=== PATIENT | male | born 1950 | race Caucasian/White ===

== ENCOUNTER 2023-11-17 09:03 | Inpatient (IN) | payer OTHER, MEDICAID ==
[~2023-11-17] VITALS: Ht 167.6 cm; Wt 53.5 kg
[2023-11-17 09:16] VITALS: BP 113/80; PULSE 98; RESP 16; TEMP 98.1; O2SAT 93
[2023-11-17 10:03] LABS: BASOPHILS % (AUTO) 0.2 % (0.0-2.0); EOSINOPHILS # (AUTO) 0.4 K/uL (0-0.4); EOSINOPHILS % (AUTO) 2.6 % (0.0-4.0); HEMATOCRIT 40.3 % (36-52); HEMOGLOBIN 13.7 g/dL (12.0-18.0); LYMPHOCYTES # (AUTO) 1.3 K/uL (2.0-11.5); LYMPHOCYTES % (AUTO) 9.4 % (20.5-51.1); MEAN CORPUSCULAR HEMOGLOBIN 30 pg (27-31); MEAN CORPUSCULAR HGB CONC 34 g/dL (33-37); MEAN CORPUSCULAR VOLUME 87.4 fL (80-94); MONOCYTES # (AUTO) 1.2 K/uL (0.8-1.0); MONOCYTES % (AUTO) 8.7 % (1.7-9.3); NEUTROPHILS # (AUTO) 10.8 K/uL (1.8-7.7); NEUTROPHILS % (AUTO) 79.1 % (42.2-75.2); PLATELET COUNT (AUTO) 363 K/uL (140-450); RED BLOOD CELL COUNT(AUTO) 4.61 MIL/uL (4.20-6.10); RED CELL DISTRIBUTION WIDTH 15.7 % (11.6-13.7); WHITE BLOOD COUNT (AUTO) 13.7 K/uL (4.8-10.8)
[2023-11-17 10:15] LABS: ANION GAP 15.5 (8-16); CARBON DIOXIDE 25.8 mmol/L (21-32); CHLORIDE 98 mmol/L (98-107); CREATININE 0.8 mg/dL (0.6-1.3); GLUCOSE 87 mg/dL (74-106); POTASSIUM 4.3 mmol/L (3.5-5.1); SODIUM SERUM 135 mmol/L (136-145); UREA NITROGEN, BLOOD 22 mg/dL (7-18)
[2023-11-17] MEDS ORDERED: ACETAMINOPHEN 325 MG TAB PO PRN (10:25)
[2023-11-17] MEDS ORDERED: ONDANSETRON 4 MG/2 ML VIAL IVP PRN ×2 (10:25→15:15)
[2023-11-17] MEDS ORDERED: MELA5SGL GT (10:47)
[2023-11-17] MEDS ORDERED: LEVO25CA2 GT (10:47)
[2023-11-17] MEDS ORDERED: VALP-22 GT (10:47)
[2023-11-17] MEDS ORDERED: OLAN2.5T1 GT (10:47)
[2023-11-17] MEDS ORDERED: BREX2TAB GT (10:47)
[2023-11-17] MEDS: DEXT 5% /NACL 0.9% 1,000 ML IV SCH (11:26)
[2023-11-17] MEDS ORDERED: MAG SULF 2000 MG/WATER PREMIX 50 ML IV PRN (15:15)
[2023-11-17] MEDS ORDERED: HYDROcodone/APAP 7.5/325 MG 1 TAB PO PRN (15:15)
[2023-11-17] MEDS ORDERED: POTASSIUM CHLORIDE 10 MEQ TABER PO PRN (15:15)
[2023-11-17] MEDS ORDERED: ACETAMINOPHEN 650 MG/20.3 ML UDC GT PRN (15:20)
[2023-11-17 15:39] LABS: INR 0.99 (0.8-1.2); PARTIAL THROMBOPLASTIN TIME 36.4 secs (22-35.6); PROTHROMBIN TIME 10.4 secs (10.8-13.4)
[2023-11-17 15:44] LABS: LACTIC ACID 1.2 mmol/L (0.4-2.0)
[2023-11-17 15:50] LABS: AMYLASE 48 U/L (25-115); CHOL/HDL RATIO 4.6 (1-4.5); CHOLESTEROL 166 mg/dL (<200); HDL CHOLESTEROL 36 mg/dL (40-60); LDL (CALC) 111 mg/dL (60-100); LIPASE 37 U/L (16-77); MAGNESIUM 2.1 mg/dL (1.8-2.4); PHOSPHORUS 3.7 mg/dL (2.5-4.9); THYROID STIMULATING HORMONE 3.34 uIU/mL (0.34-3.74); TRIGLYCERIDES 98 mg/dL (30-150)
[2023-11-17] MEDS: NACL 0.9% 1,000 ML IV SCH (15:51)
[2023-11-17 20:30] VITALS: BP 118/62; PULSE 81; PULSE 87; RESP 18; TEMP 98.1; O2SAT 98
[2023-11-17 20:53] VITALS: PULSE 84
[2023-11-17] MEDS ORDERED: BREXPIPRAZOLE 2 MG GT SCH (21:00)
[2023-11-17] MEDS: MELATONIN 3 MG TAB PO SCH (21:00)
[2023-11-17] MEDS: DOCUSATE 100 MG/10 ML UDC GT SCH (21:00)
[2023-11-17] MEDS: VALPROIC ACID 250 MG/5 ML UDC GT SCH (21:00)
[2023-11-17] MEDS ORDERED: MELATONIN 5 MG GT SCH (21:00)
[2023-11-17] MEDS: OLANZapine 2.5 MG TAB GT SCH (21:00)
[2023-11-18] VITALS (7 sets, daily range): BP systolic 108–138; BP diastolic 65–85; PULSE 64–85; RESP 18; TEMP 97.6–99; O2SAT 77–99
[2023-11-18] MEDS: DEXT 5% /NACL 0.9% 1,000 ML IV SCH (03:50)
[2023-11-18] MEDS: LEVOTHYROXINE 0.025 MG TAB PO SCH (06:30)
[2023-11-18 07:03] LABS: BASOPHILS % (AUTO) 0.3 % (0.0-2.0); CALCIUM 8.8 mg/dL (8.5-10.1); CARBON DIOXIDE 23.3 mmol/L (21-32); CHLORIDE 102 mmol/L (98-107); CREATININE 0.7 mg/dL (0.6-1.3); EOSINOPHILS # (AUTO) 0.3 K/uL (0-0.4); EOSINOPHILS % (AUTO) 2.9 % (0.0-4.0); GLUCOSE 84 mg/dL (74-106); HEMATOCRIT 38.5 % (36-52); HEMOGLOBIN 13.3 g/dL (12.0-18.0); LYMPHOCYTES # (AUTO) 1.4 K/uL (2.0-11.5); MEAN CORPUSCULAR HEMOGLOBIN 30 pg (27-31); MEAN CORPUSCULAR HGB CONC 35 g/dL (33-37); MEAN CORPUSCULAR VOLUME 87.7 fL (80-94); MONOCYTES % (AUTO) 9.7 % (1.7-9.3); NEUTROPHILS # (AUTO) 7.4 K/uL (1.8-7.7); NEUTROPHILS % (AUTO) 73.1 % (42.2-75.2); PLATELET COUNT (AUTO) 351 K/uL (140-450); POTASSIUM 4.3 mmol/L (3.5-5.1); RED BLOOD CELL COUNT(AUTO) 4.39 MIL/uL (4.20-6.10); RED CELL DISTRIBUTION WIDTH 15.8 % (11.6-13.7); SODIUM SERUM 136 mmol/L (136-145); UREA NITROGEN, BLOOD 18 mg/dL (7-18); WHITE BLOOD COUNT (AUTO) 10.1 K/uL (4.8-10.8)
[2023-11-18 07:21] LABS: MAGNESIUM 1.9 mg/dL (1.8-2.4); PHOSPHORUS 2.9 mg/dL (2.5-4.9)
[2023-11-18] MEDS: PANTOPRAZOLE 40 MG INJ VIAL IVP SCH (09:00)
[2023-11-18] MEDS ORDERED: LEVOTHYROXINE SODIUM 25 MCG GT SCH (09:00)
[2023-11-19] VITALS (7 sets, daily range): BP systolic 105–137; BP diastolic 59–100; PULSE 47–90; RESP 18; TEMP 97.3–98.1; O2SAT 92–98
[2023-11-19 06:32] LABS: APPEARANCE,URINE CLEAR (CLEAR); BILIRUBIN,URINE NEGATIVE (NEGATIVE); BLOOD, URINE NEGATIVE (NEGATIVE); COLOR,URINE YELLOW (YELLOW); LEUKOCYTE ESTERASE ,URINE NEGATIVE (NEGATIVE); NITRITE, URINE NEGATIVE (NEGATIVE); PH,URINE 6.5 (5.0-9.0); PROTEIN,URINE NEGATIVE (NEGATIVE); UGLUCOSE NEGATIVE (NEGATIVE); UROBILINOGEN,URINE 0.2 EU/dL (0.2 - 1)
[2023-11-19 06:33] LABS: BASOPHILS # (AUTO) 0.1 K/uL (0.00-0.22); BASOPHILS % (AUTO) 0.5 % (0.0-2.0); EOSINOPHILS # (AUTO) 0.3 K/uL (0-0.4); EOSINOPHILS % (AUTO) 3.5 % (0.0-4.0); HEMATOCRIT 36.1 % (36-52); HEMOGLOBIN 12.4 g/dL (12.0-18.0); LYMPHOCYTES # (AUTO) 1.6 K/uL (2.0-11.5); LYMPHOCYTES % (AUTO) 16.4 % (20.5-51.1); MEAN CORPUSCULAR HEMOGLOBIN 30 pg (27-31); MEAN CORPUSCULAR HGB CONC 34 g/dL (33-37); MEAN CORPUSCULAR VOLUME 87.8 fL (80-94); MONOCYTES % (AUTO) 10.7 % (1.7-9.3); NEUTROPHILS # (AUTO) 6.5 K/uL (1.8-7.7); NEUTROPHILS % (AUTO) 68.9 % (42.2-75.2); PLATELET COUNT (AUTO) 315 K/uL (140-450); RED BLOOD CELL COUNT(AUTO) 4.11 MIL/uL (4.20-6.10); RED CELL DISTRIBUTION WIDTH 15.8 % (11.6-13.7); WHITE BLOOD COUNT (AUTO) 9.4 K/uL (4.8-10.8)
[2023-11-19 06:44] LABS: AMPHETAMINE, URINE NEGATIVE ng/ml (NEG <=1000); BARBITURATE, URINE NEGATIVE ng/ml (NEG <=200); BENZODIAZEPINE, URINE NEGATIVE ng/mL (NEG <=200); CANNABINOID, URINE NEGATIVE ng/mL (NEG <=50); COCAINE, URINE NEGATIVE ng/mL (NEG <=300); OPIATE, URINE NEGATIVE ng/mL (NEG <=2000); PHENCYCLIDINE SCREEN,URINE NEGATIVE ng/mL (NEG <=25)
[2023-11-19 06:44] LABS: ANION GAP 12.7 (8-16); CALCIUM 8.7 mg/dL (8.5-10.1); CARBON DIOXIDE 24.2 mmol/L (21-32); CHLORIDE 105 mmol/L (98-107); CREATININE 0.8 mg/dL (0.6-1.3); GLUCOSE 87 mg/dL (74-106); POTASSIUM 3.9 mmol/L (3.5-5.1); SODIUM SERUM 138 mmol/L (136-145); UREA NITROGEN, BLOOD 15 mg/dL (7-18)
[2023-11-19 06:56] LABS: MAGNESIUM 1.8 mg/dL (1.8-2.4)
[2023-11-19] MEDS: MIDAZOLAM 5 MG/5 ML VIAL ONE (10:45)
[2023-11-19] MEDS: fentaNYL citrate 0.05 MG/ML VIAL ONE (10:45)
[2023-11-19] MEDS: MIDAZOLAM 2 MG/2 ML VIAL IVP ONE (11:08)
[2023-11-19] MEDS: fentaNYL citrate 0.05 MG/ML VIAL IVP ONE (11:08)
[2023-11-19] MEDS ORDERED: MAGNESIUM HYDROXIDE 2400 MG/30 ML UDC GT PRN (11:25)
[2023-11-19] MEDS: METOCLOPRAMIDE 10 MG/10 ML SYRP UDC GT SCH (16:30)
[2023-11-19] MEDS: LANSOPRAZOLE 30 MG CAPDR GT SCH (17:16)
[2023-11-20] VITALS: BP 117/75; PULSE 52; RESP 18; TEMP 97.4; O2SAT 99
[2023-11-20 00:14] VITALS: PULSE 46
[2023-11-20 04:00] VITALS: BP 97/60; PULSE 53; PULSE 58; RESP 18; TEMP 97.4; O2SAT 99
[2023-11-20 04:07] VITALS: PULSE 46
[2023-11-20 06:59] LABS: BASOPHILS % (AUTO) 0.4 % (0.0-2.0); EOSINOPHILS # (AUTO) 0.5 K/uL (0-0.4); EOSINOPHILS % (AUTO) 4.4 % (0.0-4.0); HEMATOCRIT 36.9 % (36-52); HEMOGLOBIN 12.4 g/dL (12.0-18.0); LYMPHOCYTES # (AUTO) 1.8 K/uL (2.0-11.5); LYMPHOCYTES % (AUTO) 17.1 % (20.5-51.1); MEAN CORPUSCULAR HEMOGLOBIN 30 pg (27-31); MEAN CORPUSCULAR HGB CONC 34 g/dL (33-37); MONOCYTES # (AUTO) 1.4 K/uL (0.8-1.0); MONOCYTES % (AUTO) 13.2 % (1.7-9.3); NEUTROPHILS % (AUTO) 64.9 % (42.2-75.2); PLATELET COUNT (AUTO) 323 K/uL (140-450); RED BLOOD CELL COUNT(AUTO) 4.14 MIL/uL (4.20-6.10); RED CELL DISTRIBUTION WIDTH 15.3 % (11.6-13.7); WHITE BLOOD COUNT (AUTO) 10.7 K/uL (4.8-10.8)
[2023-11-20 07:14] LABS: MAGNESIUM 1.8 mg/dL (1.8-2.4); PHOSPHORUS 3.6 mg/dL (2.5-4.9)
[2023-11-20 08:00] VITALS: BP 153/98; PULSE 60; PULSE 61; RESP 18; TEMP 97.2; O2SAT 100
[2023-11-20 09:02] LABS: ANION GAP 13.6 (8-16); CALCIUM 8.6 mg/dL (8.5-10.1); CARBON DIOXIDE 24.3 mmol/L (21-32); CHLORIDE 107 mmol/L (98-107); CREATININE 0.8 mg/dL (0.6-1.3); GLUCOSE 96 mg/dL (74-106); POTASSIUM 3.9 mmol/L (3.5-5.1); SODIUM SERUM 141 mmol/L (136-145); UREA NITROGEN, BLOOD 11 mg/dL (7-18)
[2023-11-20] MEDS ORDERED: LANS30EC68 GT (09:10)
[2023-11-20 12:00] VITALS: BP 102/81; PULSE 57; PULSE 58; RESP 18; TEMP 96.2; O2SAT 98
== END 2023-11-20 16:31 | DRG 871 ==
LOC: MED 09:03 → MMU 10:27 → MTU 18:23
PROVIDERS: ADMIT Family Medicine
PROC: 0DH68UZ Insertion of Feeding Device into Stomach, Via Natural or Artificial Opening Endoscopic (ICD-10-PCS; principal; 2023-11-20)
DX: A41.9 Sepsis, unspecified organism (principal); R53.2 Functional quadriplegia; K94.23 Gastrostomy malfunction; E46 Unspecified protein-calorie malnutrition; E87.1 Hypo-osmolality and hyponatremia; Z68.1 Body mass index [BMI] 19.9 or less, adult; R64 Cachexia; E03.9 Hypothyroidism, unspecified; E86.0 Dehydration; F03.90 Unspecified dementia, unspecified severity, without behavioral disturbance, psychotic disturbance, mood disturbance, and anxiety; I25.10 Atherosclerotic heart disease of native coronary artery without angina pectoris; F32.9 Major depressive disorder, single episode, unspecified; F43.10 Post-traumatic stress disorder, unspecified; M81.0 Age-related osteoporosis without current pathological fracture; G80.9 Cerebral palsy, unspecified; Z79.899 Other long term (current) drug therapy; K20.90 Esophagitis, unspecified without bleeding; K29.80 Duodenitis without bleeding
CPT/HCPCS: 36415; 71045; 80048; 80305; 81003; 82140; 82150; 83036; 83605; 83690; 83735; 83880; 84100; 84439; 84443; 84484; 85025; 85610; 85730; 87040; 87081; 87086; 93005; 99285; C9113; J1644; J2250; J2405; J3010; J8597; Q0092